=== PATIENT | male | born 1995 | race Two or more races ===

== ENCOUNTER 2017-10-09 18:48 | Emergency (ER) | payer OTHER ==
[~2017-10-09] VITALS: Ht 167.6 cm; Wt 65.8 kg
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
[2017-10-09] MEDS ORDERED: ESCI10TA PO (18:57)
[2017-10-09] MEDS ORDERED: BUSP10TA35 PO (18:57)
--- NOTE | 2017-10-09 19:09 | NUR ---
JENNA SANTAMARIA AT BEDSIDE FOR EVAL.
[2017-10-09] MEDS ORDERED: TDAP [DIPH/PERTUSSIS/TET] 0.5 ML VIAL IM ONE ×2 (19:30→19:47)
[2017-10-09] MEDS ORDERED: HYDROCODONE/APAP 5/325MG 1 EACH TABLET PO ONE (19:30)
[2017-10-09] MEDS ORDERED: HYDROCODONE/APAP 5/325MG 1 EACH TABLET ONE (19:47)
[2017-10-09 20:33] LABS: BASOPHILS # (AUTO) 0.1 /CMM (0.0-0.2); BASOPHILS % (AUTO) 0.7 % (0.0-2.0); EOSINOPHILS % (AUTO) 0.6 % (0.0-6.0); HEMATOCRIT 42 % (39-51); LYMPHOCYTES # (AUTO) 1.3 /CMM (0.8-4.8); LYMPHOCYTES % (AUTO) 16.7 % (20.0-44.0); MEAN CORPUSCULAR HEMOGLOBIN 31 PG (26.0-33.0); MEAN CORPUSCULAR HGB CONC 36 g/dl (31.0-36.0); MEAN CORPUSCULAR VOLUME 87 fL (80-96); MONOCYTES # (AUTO) 0.5 /CMM (0.1-1.30); MONOCYTES % (AUTO) 6.9 % (2.0-12.0); NEUTROPHILS # (AUTO) 5.9 /CMM (1.8-8.9); NEUTROPHILS % (AUTO) 75.1 % (43.0-81.0); PLATELET COUNT (AUTO) 339 /CMM (150-450); RDW COEFFICIENT OF VARIATION 12.6 (11.5-15.0); RED BLOOD CELL COUNT(AUTO) 4.81 MIL/uL (4.5-6.0); WHITE BLOOD COUNT (AUTO) 7.8 K/uL (4.3-11.0)
[2017-10-09 20:45] LABS: CALCIUM, SERUM 9.3 mg/dL (8.5-10.1); CREATININE 0.8 mg/dL (0.6-1.3)
[2017-10-09 20:47] LABS: INR 0.99 (0.87-1.13); PROTHROMBIN TIME 10.3 SECS (9.5-12.7)
--- NOTE | 2017-10-09 20:49 | NUR ---
[facility] CALLED.
[2017-10-09 20:51] LABS: ALBUMIN 4.6 g/dL (3.4-5.0); BILIRUBIN,TOTAL 0.7 mg/dL (0.2-1.0); TOTAL PROTEIN, SERUM 8.9 g/dL (6.4-8.2)
[2017-10-09] MEDS ORDERED: LIDOCAINE HCL/PF 1% 30 ML VIAL TP ONE (21:00)
[2017-10-09 21:27] VITALS: BP 146/96
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
--- NOTE | 2017-10-09 21:48 | NUR ---
CALL FROM [facility]. PT ACCEPTED TO [facility] ER BY DR NEAL. # FOR REPORT [phone]
--- NOTE | 2017-10-09 22:16 | NUR ---
REPORT GIVEN TO CHELSEA AT [facility]. PT AWAITING TRANSPORT.
--- NOTE | 2017-10-09 22:26 | NUR ---
PT TRANSFERED TO [facility] IN STABLE CONDITION.
== END 2017-10-09 22:28 | disposition short-term general hospital (02) ==
LOC: ER 18:51
DX: S01.01XA Laceration without foreign body of scalp, initial encounter (principal); S06.329A Contusion and laceration of left cerebrum with loss of consciousness of unspecified duration, initial encounter; F10.10 Alcohol abuse, uncomplicated; F32.9 Major depressive disorder, single episode, unspecified; F41.9 Anxiety disorder, unspecified; V03.92XA Pedestrian on skateboard injured in collision with car, pick-up truck or van, unspecified whether traffic or nontraffic accident, initial encounter; Y93.01 Activity, walking, marching and hiking; Y92.89 Other specified places as the place of occurrence of the external cause; Y99.8 Other external cause status
CPT/HCPCS: 12002; 36415; 70450; 72125; 80053; 85025; 85610; 86850; 99285; A4606; A6402 ×2; A6403; J3490; Z7610; 90715